=== PATIENT | female | born 1955 | race Caucasian/White ===

== ENCOUNTER 2016-08-01 10:58 | Emergency (ER) | payer MEDICAID ==
[~2016-08-01] VITALS: Ht 170.2 cm; Wt 59.5 kg
[2016-08-01 11:02] VITALS: BP 115/69
[2016-08-01] MEDS ORDERED: HYDROcodone/APAP 10/325 MG TABLET ONE (11:47)
[2016-08-01] MEDS ORDERED: HYDROcodone/APAP 10/325 MG TABLET PO ONE (12:00)
== END 2016-08-01 11:58 | disposition home or self-care (01) ==
LOC: ED 11:52
DX: M41.86 Other forms of scoliosis, lumbar region (principal); M51.36 Other intervertebral disc degeneration, lumbar region; G89.29 Other chronic pain; M54.5 Low back pain; M19.90 Unspecified osteoarthritis, unspecified site; Z76.0 Encounter for issue of repeat prescription; Z88.0 Allergy status to penicillin; Z88.5 Allergy status to narcotic agent; F17.210 Nicotine dependence, cigarettes, uncomplicated
CPT/HCPCS: 99283

== ENCOUNTER 2016-09-18 09:08 | Emergency (ER) | payer MEDICAID ==
[~2016-09-18] VITALS: Ht 170.2 cm; Wt 57.8 kg
[~2016-09-18 09:08] MED LIST: DULO60CA7 PO; HYDR-3307 PO
[2016-09-18 09:12] VITALS: BP 116/76
[2016-09-18] MEDS ORDERED: HYDROcodone/APAP 5/325 TABLET ONE (10:52)
[2016-09-18] MEDS ORDERED: HYDROcodone/APAP 5/325 TABLET PO ONE (11:00)
== END 2016-09-18 11:00 | disposition home or self-care (01) ==
LOC: ED 10:01
DX: S39.012A Strain of muscle, fascia and tendon of lower back, initial encounter (principal); M54.9 Dorsalgia, unspecified; G89.29 Other chronic pain; Z88.5 Allergy status to narcotic agent; Z88.0 Allergy status to penicillin; F17.210 Nicotine dependence, cigarettes, uncomplicated; X58.XXXA Exposure to other specified factors, initial encounter; Y93.89 Activity, other specified; Y99.8 Other external cause status; Y92.89 Other specified places as the place of occurrence of the external cause
CPT/HCPCS: 99283

== ENCOUNTER 2016-10-11 07:09 | Emergency (ER) | payer MEDICAID ==
[~2016-10-11] VITALS: Ht 170.2 cm; Wt 55.3 kg
[2016-10-11 07:11] VITALS: BP 145/84
== END 2016-10-11 07:39 | disposition home or self-care (01) ==
LOC: ED 07:33
DX: G89.29 Other chronic pain (principal); M54.6 Pain in thoracic spine; M54.5 Low back pain; M41.9 Scoliosis, unspecified; M19.90 Unspecified osteoarthritis, unspecified site; Z87.891 Personal history of nicotine dependence
CPT/HCPCS: 99283